=== PATIENT | female | born 1990 | race Caucasian/White ===

== ENCOUNTER 2016-07-02 06:28 | Inpatient (IN) | payer BC, OTHER ==
[~2016-07-02] VITALS: Ht 172.7 cm; Wt 134.5 kg
[2016-07-02] VITALS (28 sets, daily range): BP systolic 99–142; BP diastolic 51–90
[2016-07-02] MEDS ORDERED: OXYTOCIN INJ 20 UNIT in NS 1000ml 1,000 ML IV PRN (06:32)
[2016-07-02] MEDS ORDERED: CALCIUM CARBONATE CHEWABLE 300 MG (TUMS) TABLET PO PRN (06:35)
[2016-07-02] MEDS ORDERED: SODIUM CHLORIDE FLUSH 3 ML SYR IV PRN (06:35)
[2016-07-02] MEDS ORDERED: SODIUM CHLORIDE FLUSH 10 ML SYR IV PRN (06:35)
[2016-07-02 07:18] LABS: MEAN CORPUSCULAR HEMOGLOBIN 28.2 PG (26.0-34.0); MEAN CORPUSCULAR HGB CONC 34.4 g/dL (31.0-37.0); MEAN PLATELET VOLUME 10.1 FL (6.0-9.5); WHITE BLOOD COUNT 10.12 10^3uL (4.0-11.0)
[2016-07-02] MEDS ORDERED: OXYTOCIN INJ 20 UNIT in NS 1000ml 1,000 ML IV SCH (13:50)
[2016-07-02] MEDS ORDERED: ROPIVACAINE 1% 10 MG/ML (NAROPIN) 20 ML AMPUL ONE ×2 (18:02)
[2016-07-03] VITALS (15 sets, daily range): BP systolic 100–133; BP diastolic 54–81
[2016-07-03] MEDS ORDERED: diphenhydrAMINE 50 MG/ML INJ (BENADRYL) IM PRN (01:30)
[2016-07-03] MEDS ORDERED: diphenhydrAMINE 50 MG/ML INJ (BENADRYL) IV PRN (01:30)
[2016-07-03] MEDS ORDERED: diphenhydrAMINE 50 MG (BENADRYL) CAPSULE PO PRN (01:30)
[2016-07-03] MEDS ORDERED: ONDANSETRON 2 MG/ML (Z0FRAN) 2 ML VIAL IV PRN (01:30)
[2016-07-03] MEDS ORDERED: NALBUPHINE 10 MG/ML (NUBAIN) 1 ML AMP IV PRN ×2 (01:30)
[2016-07-03] MEDS ORDERED: METOCLOPRAMIDE 10 MG/2 ML (REGLAN) VIAL IV SCH (01:30)
[2016-07-03] MEDS ORDERED: diphenhydrAMINE 25 MG (BENADRYL) TABLET PO PRN (01:30)
[2016-07-03] MEDS ORDERED: POT BICARB/SOD BICARB/CIT AC (ALKA-SELTZER GOLD) 1 TABLET.EFF PO SCH (01:30)
[2016-07-03] MEDS ORDERED: OXYTOCIN INJ 20 UNIT in NS 1000ml 1,000 ML IV SCH (01:32)
[2016-07-03] MEDS ORDERED: LANOLIN OINTMENT 28 GM TUBE TOP PRN (01:35)
[2016-07-03] MEDS ORDERED: oxyCODONE/ACETAMINOPHEN 5MG-325 MG (PERCOCET) TABLET PO PRN (01:35)
[2016-07-03] MEDS ORDERED: M-M-R II (MEASLES,MUMPS,RUBELLA) VACCINE SC ONE (01:35)
[2016-07-03] MEDS ORDERED: OXYTOCIN 10 UNIT/ML (PITOCIN) 1 ML VIAL ONE (01:43)
[2016-07-03] MEDS ORDERED: ROPIVACAINE 1% 10 MG/ML (NAROPIN) 20 ML AMPUL ONE (01:43)
[2016-07-03] MEDS ORDERED: morphine PF 0.5 MG/ML (DURAMORPH) 10 ML VIAL IV ONE (01:43)
[2016-07-03] MEDS ORDERED: ceFAZolin 1000 MG (ANCEF) VIAL ONE (01:44)
[2016-07-03] MEDS ORDERED: ceFAZolin 1,000 MG in SODIUM CHLORIDE VIAL (PF) 10 ML IV SCH (01:45)
[2016-07-03] MEDS: IBUPROFEN 600 MG (MOTRIN) TAB PO SCH ×3 (07:00→20:55)
--- NOTE | 2016-07-03 11:30 | NUR ---
Pt ambulates to BR with minimal assistance. Pericare given and pads changed. Oral care provided. Pt. tolerating activity well. Returns to sit up in chair. Demo bath of baby given to parents.
--- NOTE | 2016-07-03 17:00 | NUR ---
Mom pumps after attempting to nurse babe. 1.8 ml colostrum from lt breast, non from right. Colostrum given to babe via syringe.
[2016-07-03] MEDS: DOCUSATE SODIUM 100 MG (COLACE) CAP PO SCH (21:05)
[2016-07-04] MEDS: IBUPROFEN 600 MG (MOTRIN) TAB PO SCH ×3 (06:19→18:45)
[2016-07-04 08:56] VITALS: BP 128/73
[2016-07-04 20:10] VITALS: BP 130/73
[2016-07-04] MEDS: DOCUSATE SODIUM 100 MG (COLACE) CAP PO SCH (21:44)
[2016-07-05] MEDS: IBUPROFEN 600 MG (MOTRIN) TAB PO SCH ×3 (06:00→12:30)
[2016-07-05 08:00] VITALS: BP 126/68
--- NOTE | 2016-07-05 17:15 | NUR ---
1340 Pt discharged in good condition. Discharge teaching/instructions reviewed with the pt who denies questions/concerns at this time. Advised her to call if she does have questions. Security bands are collected and matched from baby and mom. 1540 Pt ambulates, while carries baby secured in infant car seat/carrier, accompanied by Stefanie Liu RN, away from the OB unit to the ER entrance of the hospital where the pt's secures carrier into the base unit of the car seat. The family leaves via private vehicle.
== END 2016-07-05 15:40 | disposition home or self-care (01) | DRG 766 ==
LOC: OB 06:28 → EDSTATUS 07-08 08:41
PROVIDERS: ADMIT Obstetrics & Gynecology; ATTEND Obstetrics & Gynecology
PROC: 10907ZC Drainage of Amniotic Fluid, Therapeutic from Products of Conception, Via Natural or Artificial Opening (ICD-10-PCS; principal; 2016-07-02)
PROC: 10D00Z1 Extraction of Products of Conception, Low, Open Approach (ICD-10-PCS; 2016-07-03)
DX: O99.02 Anemia complicating childbirth (principal); D64.9 Anemia, unspecified; O32.4XX0 Maternal care for high head at term, not applicable or unspecified; O66.5 Attempted application of vacuum extractor and forceps; Z3A.39 39 weeks gestation of pregnancy; Z37.0 Single live birth
CPT/HCPCS: 36415; 59510; 85014; 85018; 85027; 86850; 86900; 86901; 94762